=== PATIENT | male | born 1940 | race African-American/Black ===

== ENCOUNTER 2017-08-25 08:45 | Inpatient (IN) ==
[2017-08-25] MEDS ORDERED: ceFAZolin 1,000 MG VIAL ONE (11:58)
[2017-08-25] MEDS ORDERED: SODIUM CHLORIDE 0.9% 100 ML IV ONE (11:59)
[2017-08-25] MEDS ORDERED: VANCOMYCIN 500 MG VIAL ONE (12:08)
[2017-08-25] MEDS ORDERED: HEPARIN 5,000 UNIT/1 ML VIAL ONE (12:08)
[2017-08-25] MEDS ORDERED: TISSUE ADHESIVE 1 EACH APPLICATOR TOP ONE (12:08)
[2017-08-25] MEDS ORDERED: chlorproMAZINE INJ 25 MG in SODIUM CHLORIDE 0.9% 100 ML IV PRN (13:33)
[2017-08-25] MEDS ORDERED: guaiFENesin 200 MG/10 ML UDCUP PO PRN (13:33)
[2017-08-25] MEDS ORDERED: MYLANTA/LIDO VISC 2:1 300 ML BOTTLE SWISH/SPIT PRN (13:33)
[2017-08-25] MEDS ORDERED: ALUMINUM/MAGNES/SIMETH MAX STR 30 ML UDCUP PO PRN (13:33)
[2017-08-25] MEDS ORDERED: chlorproMAZINE 25 MG TABLET PO PRN (13:33)
[2017-08-25] MEDS ORDERED: BENZTROPINE 2 MG/2 ML AMP IV PRN (13:33)
[2017-08-25] MEDS ORDERED: MAGNESIUM HYDROXIDE SUSP 30 ML UDCUP PO PRN (13:33)
[2017-08-25] MEDS ORDERED: ALPRAZolam 0.25 MG TABLET PO PRN (13:33)
[2017-08-25] MEDS ORDERED: TEMAZEPAM 7.5 MG CAPSULE PO PRN (13:33)
[2017-08-25] MEDS ORDERED: ACETAMINOPHEN 325 MG TABLET PO PRN (13:33)
[2017-08-25] MEDS ORDERED: chlorproMAZINE INJ 50 MG in SODIUM CHLORIDE 0.9% 100 ML IV PRN (13:33)
[2017-08-25] MEDS ORDERED: PROMETHAZINE INJ 25 MG in SODIUM CHLORIDE 0.9% 50 ML IV PRN (13:33)
[2017-08-25] MEDS ORDERED: traMADol 50 MG TABLET PO PRN (13:33)
[2017-08-25] MEDS ORDERED: LOPERAMIDE 2 MG CAPSULE PO PRN ×2 (13:33)
[2017-08-25] MEDS ORDERED: diphenhydrAMINE CAP 25 MG CAPSULE PO PRN (13:33)
[2017-08-25] MEDS ORDERED: HYDROmorphone 2 MG/1 ML VIAL IV PRN (13:36)
[2017-08-25] MEDS ORDERED: MIDAZOLAM 2 MG/2 ML VIAL ONE (13:41)
[2017-08-25] MEDS ORDERED: PROPOFOL 200 MG/20 ML VIAL IV ONE (13:41)
[2017-08-25] MEDS ORDERED: fentaNYL 100 MCG/2 ML VIAL ONE (13:41)
[2017-08-25] MEDS ORDERED: MYLANTA/LIDO VISC 2:1 300 ML BOTTLE SWISH/SWAL PRN (14:50)
[2017-08-25 15:07] LABS: Basophils % 0.5 % (0.0-0.8); Eosinophils # 0.1 10*3/uL (0.0-0.87); Eosinophils % 0.9 % (0.00-10.9); Hematocrit 27.6 VOL% (42.0-52.0); Hemoglobin 8.6 GM/DL (14.0-18.0); Immature Granulocytes % 0.4 %; Immature Granulocytes Absolute 0.03 #; Lymphocytes # 1.5 10*3/uL (1.4-4.0); Lymphocytes % 18.7 % (21.2-54.2); Mean Corpuscular HGB Conc 31.2 GM/DL (32-36); Mean Corpuscular Hemoglobin 25 PG (27-34); Mean Corpuscular Volume 78.9 FL (87-102); Mean Platelet Volume 8.5 FL (9.6-12.0); Monocytes # 0.6 10*3/uL (0.11-0.8); Monocytes % 8.2 % (1.7-12.7); Neutrophils # 5.6 10*3/uL (1.4-7.4); Neutrophils % 71.3 % (38.7-73.9); Platelet Count 523 T/CUMM (130-400); White Blood Count 7.9 T/CUMM (4-12)
[2017-08-25 15:30] LABS: Alanine Aminotransferase < 6 U/L (16-61); Albumin 3.3 G/DL (3.4-5.0); Alkaline Phosphatase 481 U/L (45-117); Aspartate Amino Transferase 22 U/L (0-37); Bilirubin,Total < 0.39 MG/DL (0.2-1.0); Blood Urea Nitrogen 24 MG/DL (7-18); Calcium 7.9 MG/DL (8.5-10.1); Glucose 129 MG/DL (74-106); Osmolality,Calculated 282.5 MOS/KG (273-304); Potassium 4.8 MMOL/L (3.5-5.1); Sodium 139 MMOL/L (136-145); Total Protein 7.8 G/DL (6.4-8.3); Uric Acid 6.9 MG/DL (3.5-7.2)
[2017-08-25] MEDS: DEXT 5% NACL 0.45% KCL 20 MEQ 20 MEQ/1,000 ML BAG IV SCH (17:15)
[2017-08-26] MEDS: DEXT 5% NACL 0.45% KCL 20 MEQ 20 MEQ/1,000 ML BAG IV SCH ×2 (04:47→22:17)
[2017-08-26 05:05] LABS: Basophils % 0.6 % (0.0-0.8); Eosinophils # 0.1 10*3/uL (0.0-0.87); Hematocrit 25.8 VOL% (42.0-52.0); Hemoglobin 7.8 GM/DL (14.0-18.0); Immature Granulocytes % 0.3 %; Immature Granulocytes Absolute 0.02 #; Lymphocytes # 1.1 10*3/uL (1.4-4.0); Lymphocytes % 17.6 % (21.2-54.2); Mean Corpuscular HGB Conc 30.2 GM/DL (32-36); Mean Corpuscular Hemoglobin 24 PG (27-34); Mean Corpuscular Volume 80.6 FL (87-102); Mean Platelet Volume 8.4 FL (9.6-12.0); Monocytes # 0.7 10*3/uL (0.11-0.8); Monocytes % 10.3 % (1.7-12.7); Neutrophils # 4.4 10*3/uL (1.4-7.4); Neutrophils % 69.2 % (38.7-73.9); Platelet Count 448 T/CUMM (130-400); Red Cell Distribution Width 17.8 % (9.3-17.3); White Blood Count 6.4 T/CUMM (4-12)
[2017-08-26 05:41] LABS: Alanine Aminotransferase < 6 U/L (16-61); Albumin 2.8 G/DL (3.4-5.0); Alkaline Phosphatase 429 U/L (45-117); Aspartate Amino Transferase 18 U/L (0-37); Blood Urea Nitrogen 20 MG/DL (7-18); Calcium 7.4 MG/DL (8.5-10.1); Glucose 183 MG/DL (74-106); Osmolality,Calculated 282.7 MOS/KG (273-304); Potassium 4.6 MMOL/L (3.5-5.1); Sodium 138 MMOL/L (136-145); Total Protein 7.1 G/DL (6.4-8.3)
[2017-08-26] MEDS ORDERED: SODIUM CHLORIDE 0.9% 1,000 ML IV PRN (09:50)
[2017-08-26 09:56] LABS: Apearance,Urine CLEAR (Clear); Bacteria,Urine Occasional /HPF (Few); Bilirubin,Urine Negative (Negative); Blood, Urine Negative (Negative); Glucose,Urine (UA) 50 mg/dL (Negative); Hyaline Casts,Urine 3 /LPF (0-3); Ketones,Urine Negative (Negative); Mucus,Urine Occasional /LPF (Occasional); Nitrite,Urine Negative (Negative); Protein,Urine Negative; RBC,Urine <1 /HPF (0-4); Squamous Epithelial Cell,Urine Occasional /HPF (0-10); Urine Color Yellow (Yellow); Urine Specific Gravity 1.017 (1.001-1.035); Urine Urobilinogen < 2.0 EU/DL (0.2-1.0); WBC,Urine 3 /HPF (0-6)
[2017-08-26] MEDS ORDERED: DEXAMETHASONE 10 MG/1 ML VIAL IV SCH (10:00)
[2017-08-26] MEDS: DEXAMETHASONE INJ 20 MG in SODIUM CHLORIDE 0.9% 50 ML IV SCH (10:55)
[2017-08-27] MEDS: DEXAMETHASONE INJ 20 MG in SODIUM CHLORIDE 0.9% 50 ML IV SCH ×3 (00:06→23:39)
[2017-08-27] MEDS ORDERED: HEPARIN LOCK FLUSH 500 UNIT/5 ML SYRINGE IV ONE (04:14)
[2017-08-27 05:23] LABS: Basophils % 0.1 % (0.0-0.8); Hematocrit 31.8 VOL% (42.0-52.0); Hemoglobin 9.9 GM/DL (14.0-18.0); Immature Granulocytes % 0.7 %; Immature Granulocytes Absolute 0.06 #; Lymphocytes # 0.8 10*3/uL (1.4-4.0); Lymphocytes % 9.3 % (21.2-54.2); Mean Corpuscular HGB Conc 31.1 GM/DL (32-36); Mean Corpuscular Hemoglobin 26 PG (27-34); Mean Corpuscular Volume 82.4 FL (87-102); Mean Platelet Volume 8.7 FL (9.6-12.0); Monocytes # 0.7 10*3/uL (0.11-0.8); Monocytes % 7.8 % (1.7-12.7); Neutrophils # 7.1 10*3/uL (1.4-7.4); Neutrophils % 82.1 % (38.7-73.9); Platelet Count 356 T/CUMM (130-400); Red Blood Count 3.86 MC/CUMM (3.8-5.5); Red Cell Distribution Width 17.4 % (9.3-17.3); White Blood Count 8.7 T/CUMM (4-12)
[2017-08-27 05:56] LABS: Alanine Aminotransferase < 9 U/L (16-61); Albumin 2.7 G/DL (3.4-5.0); Alkaline Phosphatase 416 U/L (45-117); Aspartate Amino Transferase 36 U/L (0-37); Blood Urea Nitrogen 22 MG/DL (7-18); Calcium 7.1 MG/DL (8.5-10.1); Glucose 228 MG/DL (74-106); Osmolality,Calculated 279.1 MOS/KG (273-304); Potassium 4.8 MMOL/L (3.5-5.1); Sodium 135 MMOL/L (136-145); Total Protein 6.9 G/DL (6.4-8.3)
[2017-08-27] MEDS: DEXT 5% NACL 0.45% KCL 20 MEQ 20 MEQ/1,000 ML BAG IV SCH ×2 (05:58→16:53)
[2017-08-27] MEDS ORDERED: SODIUM CHLORIDE 0.9% IV ONE ×2 (10:00→16:00)
[2017-08-27] MEDS ORDERED: DOCETAXEL IV ONE ×2 (10:00→16:00)
[2017-08-27] MEDS: HYDROmorphone 2 MG/1 ML VIAL IV PRN ×2 (10:23→15:28)
[2017-08-27] MEDS: GRANISETRON 1 MG/1 ML VIAL IV SCH (15:28)
[2017-08-27 17:15] LABS: Apearance,Urine CLEAR (Clear); Bilirubin,Urine Negative (Negative); Blood, Urine Moderate mg/dL (Negative); Glucose,Urine (UA) >=500 mg/dL (Negative); Ketones,Urine Negative (Negative); Mucus,Urine Occasional /LPF (Occasional); Nitrite,Urine Negative (Negative); Protein,Urine Negative; RBC,Urine 10 /HPF (0-4); Squamous Epithelial Cell,Urine Occasional /HPF (0-10); Urine Color Yellow (Yellow); Urine Specific Gravity 1.009 (1.001-1.035); Urine Urobilinogen < 2.0 EU/DL (0.2-1.0); WBC,Urine 1 /HPF (0-6)
[2017-08-28 05:20] LABS: Basophils % 0.1 % (0.0-0.8); Hemoglobin 9.9 GM/DL (14.0-18.0); Immature Granulocytes % 1.1 %; Immature Granulocytes Absolute 0.12 #; Lymphocytes # 0.4 10*3/uL (1.4-4.0); Lymphocytes % 3.8 % (21.2-54.2); Mean Corpuscular HGB Conc 31.9 GM/DL (32-36); Mean Corpuscular Hemoglobin 26 PG (27-34); Mean Corpuscular Volume 81.2 FL (87-102); Mean Platelet Volume 9.5 FL (9.6-12.0); Monocytes # 0.3 10*3/uL (0.11-0.8); Monocytes % 2.4 % (1.7-12.7); Neutrophils # 10.2 10*3/uL (1.4-7.4); Neutrophils % 92.6 % (38.7-73.9); Platelet Count 342 T/CUMM (130-400); Red Blood Count 3.82 MC/CUMM (3.8-5.5); Red Cell Distribution Width 17.6 % (9.3-17.3)
[2017-08-28 05:38] LABS: Alanine Aminotransferase < 6 U/L (16-61); Albumin 2.6 G/DL (3.4-5.0); Alkaline Phosphatase 400 U/L (45-117); Aspartate Amino Transferase 30 U/L (0-37); Bilirubin,Total < 0.39 MG/DL (0.2-1.0); Blood Urea Nitrogen 21 MG/DL (7-18); Calcium 6.9 MG/DL (8.5-10.1); Glucose 336 MG/DL (74-106); Osmolality,Calculated 277.7 MOS/KG (273-304); Potassium 5.1 MMOL/L (3.5-5.1); Sodium 131 MMOL/L (136-145); Total Protein 6.7 G/DL (6.4-8.3)
[2017-08-28 05:50] LABS: Lymphocytes 4 % (20-55); Segmented Neutrophils 95 % (50-85); Total Cells Counted 100
[2017-08-28 05:51] LABS: Giant Platelets Few; Hypochromasia 1+; Ovalocytes Slight; Platelet Estimate Adequate
[2017-08-28] MEDS: DEXT 5% NACL 0.45% KCL 20 MEQ 20 MEQ/1,000 ML BAG IV SCH ×2 (06:20→17:36)
[2017-08-28] MEDS: GRANISETRON 1 MG/1 ML VIAL IV SCH (09:14)
[2017-08-28] MEDS ORDERED: DEXTROSE 50% 25 GM/50 ML VIAL IV PRN ×2 (12:05→12:09)
[2017-08-28] MEDS ORDERED: GLUCAGON 1 MG VIAL IM PRN ×2 (12:05→12:09)
[2017-08-28] MEDS: DEXAMETHASONE INJ 20 MG in SODIUM CHLORIDE 0.9% 50 ML IV SCH ×2 (12:18→23:17)
[2017-08-28] MEDS: INSULIN LISPRO 100 UNIT/ML SUBCUT SCH ×2 (16:57→20:02)
[2017-08-28] MEDS: HYDROmorphone 2 MG/1 ML VIAL IV PRN (19:34)
[2017-08-29] MEDS: DEXT 5% NACL 0.45% KCL 20 MEQ 20 MEQ/1,000 ML BAG IV SCH ×2 (04:02→16:53)
[2017-08-29 04:24] LABS: Basophils % 0.1 % (0.0-0.8); Hematocrit 31.6 VOL% (42.0-52.0); Hemoglobin 9.9 GM/DL (14.0-18.0); Immature Granulocytes % 0.9 %; Immature Granulocytes Absolute 0.09 #; Lymphocytes # 0.3 10*3/uL (1.4-4.0); Lymphocytes % 3.2 % (21.2-54.2); Mean Corpuscular HGB Conc 31.3 GM/DL (32-36); Mean Corpuscular Hemoglobin 26 PG (27-34); Mean Corpuscular Volume 82.3 FL (87-102); Mean Platelet Volume 9.5 FL (9.6-12.0); Monocytes # 0.4 10*3/uL (0.11-0.8); Neutrophils # 9.6 10*3/uL (1.4-7.4); Neutrophils % 91.8 % (38.7-73.9); Platelet Count 294 T/CUMM (130-400); Red Blood Count 3.84 MC/CUMM (3.8-5.5); Red Cell Distribution Width 17.7 % (9.3-17.3); White Blood Count 10.5 T/CUMM (4-12)
[2017-08-29 04:50] LABS: Alanine Aminotransferase < 6 U/L (16-61); Albumin 2.4 G/DL (3.4-5.0); Alkaline Phosphatase 348 U/L (45-117); Aspartate Amino Transferase 27 U/L (0-37); Blood Urea Nitrogen 21 MG/DL (7-18); Calcium 6.6 MG/DL (8.5-10.1); Glucose 203 MG/DL (74-106); Osmolality,Calculated 278.1 MOS/KG (273-304); Potassium 5.7 MMOL/L (3.5-5.1); Sodium 135 MMOL/L (136-145); Total Protein 6.3 G/DL (6.4-8.3)
[2017-08-29 05:15] LABS: Band Neutrophils 3 % (0-10); Lymphocytes 6 % (20-55); Platelet Estimate Normal; Segmented Neutrophils 86 % (50-85); Total Cells Counted 100
[2017-08-29] MEDS: LACTULOSE 20 GM/30 ML UDCUP PO PRN (08:41)
[2017-08-29] MEDS: GRANISETRON 1 MG/1 ML VIAL IV SCH (08:41)
[2017-08-29] MEDS: INSULIN LISPRO 100 UNIT/ML SUBCUT SCH ×4 (08:42→21:12)
[2017-08-29] MEDS: DEXAMETHASONE INJ 20 MG in SODIUM CHLORIDE 0.9% 50 ML IV SCH ×2 (10:57→23:40)
[2017-08-29] MEDS: DEXTROSE 5% NACL 0.45% 1,000 ML IV SCH (11:20)
[2017-08-29] MEDS: metFORMIN 500 MG TABLET PO SCH (17:25)
[2017-08-29] MEDS: ONDANSETRON 4 MG/2 ML VIAL IV PRN (20:56)
[2017-08-30 04:51] LABS: Basophils % 0.1 % (0.0-0.8); Hemoglobin 10.3 GM/DL (14.0-18.0); Immature Granulocytes % 0.7 %; Immature Granulocytes Absolute 0.07 #; Lymphocytes # 0.1 10*3/uL (1.4-4.0); Lymphocytes % 1.5 % (21.2-54.2); Mean Corpuscular HGB Conc 32.2 GM/DL (32-36); Mean Corpuscular Hemoglobin 26 PG (27-34); Mean Corpuscular Volume 80.2 FL (87-102); Mean Platelet Volume 9.6 FL (9.6-12.0); Monocytes # 0.2 10*3/uL (0.11-0.8); Monocytes % 1.8 % (1.7-12.7); Neutrophils % 95.9 % (38.7-73.9); Platelet Count 239 T/CUMM (130-400); Red Blood Count 3.99 MC/CUMM (3.8-5.5); Red Cell Distribution Width 17.9 % (9.3-17.3); White Blood Count 9.3 T/CUMM (4-12)
[2017-08-30 05:20] LABS: Elliptocytes Few; Hypochromasia 1+; Lymphocytes 1 % (20-55); Microcytosis 1+; Segmented Neutrophils 96 % (50-85); Tear Drop Cells Slight; Total Cells Counted 100
[2017-08-30 05:21] LABS: Platelet Estimate Normal
[2017-08-30 06:25] LABS: Albumin 2.4 G/DL (3.4-5.0); Bilirubin,Total 0.6 MG/DL (0.2-1.0); Calcium 6.5 MG/DL (8.5-10.1); Osmolality,Calculated 281.7 MOS/KG (273-304)
[2017-08-30] MEDS: INSULIN LISPRO 100 UNIT/ML SUBCUT SCH ×4 (09:07→20:29)
[2017-08-30] MEDS: GRANISETRON 1 MG/1 ML VIAL IV SCH (09:08)
[2017-08-30] MEDS: metFORMIN 500 MG TABLET PO SCH ×2 (09:08→16:57)
[2017-08-30] MEDS: DEXAMETHASONE INJ 20 MG in SODIUM CHLORIDE 0.9% 50 ML IV SCH ×2 (12:00→23:17)
[2017-08-31] MEDS ORDERED: HEPARIN LOCK FLUSH 500 UNIT/5 ML SYRINGE IV ONE (00:21)
[2017-08-31 05:02] LABS: Basophils % 0.1 % (0.0-0.8); Hematocrit 31.3 VOL% (42.0-52.0); Immature Granulocytes % 1.2 %; Immature Granulocytes Absolute 0.08 #; Lymphocytes # 0.1 10*3/uL (1.4-4.0); Lymphocytes % 2.1 % (21.2-54.2); Mean Corpuscular HGB Conc 31.9 GM/DL (32-36); Mean Corpuscular Hemoglobin 26 PG (27-34); Mean Corpuscular Volume 81.3 FL (87-102); Mean Platelet Volume 10.2 FL (9.6-12.0); Monocytes # 0.1 10*3/uL (0.11-0.8); Monocytes % 0.9 % (1.7-12.7); Neutrophils # 6.4 10*3/uL (1.4-7.4); Neutrophils % 95.7 % (38.7-73.9); Platelet Count 210 T/CUMM (130-400); Red Blood Count 3.85 MC/CUMM (3.8-5.5); Red Cell Distribution Width 18.2 % (9.3-17.3); White Blood Count 6.7 T/CUMM (4-12)
[2017-08-31 05:22] LABS: Giant Platelets Few; Lymphocytes 2 % (20-55); Ovalocytes Slight; Platelet Estimate Adequate; Segmented Neutrophils 98 % (50-85); Total Cells Counted 100
[2017-08-31 05:23] LABS: Hypochromasia 1+; Microcytosis Slight
[2017-08-31 05:33] LABS: Albumin 2.2 G/DL (3.4-5.0); Bilirubin,Total 0.4 MG/DL (0.2-1.0); Calcium 6.2 MG/DL (8.5-10.1); Potassium 5.1 MMOL/L (3.5-5.1); Total Protein 5.5 G/DL (6.4-8.3)
[2017-08-31] MEDS: GRANISETRON 1 MG/1 ML VIAL IV SCH (09:08)
[2017-08-31] MEDS: INSULIN LISPRO 100 UNIT/ML SUBCUT SCH ×4 (09:08→20:31)
[2017-08-31] MEDS: metFORMIN 500 MG TABLET PO SCH ×2 (09:10→16:51)
[2017-08-31] MEDS: DEXAMETHASONE INJ 20 MG in SODIUM CHLORIDE 0.9% 50 ML IV SCH (12:28)
[2017-08-31] MEDS: DEXTROSE 5% NACL 0.45% 1,000 ML IV SCH (20:31)
[2017-09-01] MEDS: DEXAMETHASONE INJ 20 MG in SODIUM CHLORIDE 0.9% 50 ML IV SCH ×2 (00:02→10:46)
[2017-09-01] MEDS ORDERED: DOCETAXEL IV ONE (07:43)
[2017-09-01] MEDS ORDERED: SODIUM CHLORIDE 0.9% IV ONE (07:43)
[2017-09-01] MEDS ORDERED: DEXAMETHASONE 10 MG/1 ML VIAL IV ONE (07:44)
[2017-09-01] MEDS ORDERED: GRANISETRON 1 MG/1 ML VIAL IV SCH (08:00)
[2017-09-01] MEDS: INSULIN LISPRO 100 UNIT/ML SUBCUT SCH ×4 (08:50→22:06)
[2017-09-01] MEDS: metFORMIN 500 MG TABLET PO SCH ×2 (08:50→17:23)
[2017-09-01] MEDS: GRANISETRON 1 MG/1 ML VIAL IV SCH (10:33)
[2017-09-02] MEDS: DEXTROSE 5% NACL 0.45% 1,000 ML IV SCH (00:22)
[2017-09-02] MEDS: DEXAMETHASONE INJ 20 MG in SODIUM CHLORIDE 0.9% 50 ML IV SCH ×3 (00:24→23:48)
[2017-09-02] MEDS: INSULIN LISPRO 100 UNIT/ML SUBCUT SCH ×4 (09:34→20:19)
[2017-09-02] MEDS: metFORMIN 500 MG TABLET PO SCH ×2 (09:35→17:48)
[2017-09-02] MEDS: GRANISETRON 1 MG/1 ML VIAL IV SCH (09:35)
[2017-09-03] MEDS: LACTULOSE 20 GM/30 ML UDCUP PO PRN (05:45)
[2017-09-03] MEDS: DEXTROSE 5% NACL 0.45% 1,000 ML IV SCH ×2 (06:06→22:31)
[2017-09-03] MEDS: GRANISETRON 1 MG/1 ML VIAL IV SCH (09:50)
[2017-09-03] MEDS: INSULIN LISPRO 100 UNIT/ML SUBCUT SCH ×4 (09:54→21:53)
[2017-09-03] MEDS: metFORMIN 500 MG TABLET PO SCH ×3 (09:55→17:14)
[2017-09-03] MEDS: DEXAMETHASONE INJ 20 MG in SODIUM CHLORIDE 0.9% 50 ML IV SCH ×2 (11:13→22:35)
[2017-09-04] MEDS: metFORMIN 500 MG TABLET PO SCH ×4 (08:18→16:56)
[2017-09-04] MEDS: INSULIN LISPRO 100 UNIT/ML SUBCUT SCH ×4 (08:24→20:28)
[2017-09-04] MEDS: DEXTROSE 5% NACL 0.45% 1,000 ML IV SCH (08:26)
[2017-09-04] MEDS: GRANISETRON 1 MG/1 ML VIAL IV SCH (08:27)
[2017-09-04] MEDS: DEXAMETHASONE INJ 20 MG in SODIUM CHLORIDE 0.9% 50 ML IV SCH ×2 (11:26→23:05)
[2017-09-04] MEDS ORDERED: HEPARIN LOCK FLUSH 500 UNIT/5 ML SYRINGE IV ONE (16:48)
[2017-09-05] MEDS: metFORMIN 500 MG TABLET PO SCH ×4 (08:11→16:39)
[2017-09-05] MEDS: INSULIN LISPRO 100 UNIT/ML SUBCUT SCH ×4 (09:12→21:29)
[2017-09-05] MEDS: GRANISETRON 1 MG/1 ML VIAL IV SCH (09:13)
[2017-09-05] MEDS: DEXAMETHASONE INJ 20 MG in SODIUM CHLORIDE 0.9% 50 ML IV SCH ×2 (11:33→22:49)
[2017-09-06 08:13] LABS: Basophils % 0.8 % (0.0-0.8); Hematocrit 29.8 VOL% (42.0-52.0); Hemoglobin 9.8 GM/DL (14.0-18.0); Immature Granulocytes % 12.8 %; Immature Granulocytes Absolute 0.17 #; Lymphocytes # 0.1 10*3/uL (1.4-4.0); Lymphocytes % 6.8 % (21.2-54.2); Mean Corpuscular HGB Conc 32.9 GM/DL (32-36); Mean Corpuscular Hemoglobin 26 PG (27-34); Mean Platelet Volume 10.5 FL (9.6-12.0); Monocytes # 0.1 10*3/uL (0.11-0.8); Monocytes % 3.8 % (1.7-12.7); Neutrophils % 75.8 % (38.7-73.9); Platelet Count 117 T/CUMM (130-400); Red Blood Count 3.77 MC/CUMM (3.8-5.5); Red Cell Distribution Width 18.4 % (9.3-17.3); White Blood Count 1.3 T/CUMM (4-12)
[2017-09-06 08:33] LABS: Albumin 2.3 G/DL (3.4-5.0); Bilirubin,Total 0.7 MG/DL (0.2-1.0); Potassium 4.9 MMOL/L (3.5-5.1); Total Protein 5.3 G/DL (6.4-8.3)
[2017-09-06] MEDS: INSULIN LISPRO 100 UNIT/ML SUBCUT SCH ×4 (08:35→21:10)
[2017-09-06 08:38] LABS: Lymphocytes 4 % (20-55); Nucleated Red Blood Cells 2 (0-5); Segmented Neutrophils 95 % (50-85); Total Cells Counted 100
[2017-09-06 08:39] LABS: Calcium 5.8 MG/DL (8.5-10.1); Platelet Estimate Decreased; Target Cells Slight
[2017-09-06] MEDS: metFORMIN 500 MG TABLET PO SCH ×4 (09:03→17:47)
[2017-09-06] MEDS: GRANISETRON 1 MG/1 ML VIAL IV SCH (09:03)
[2017-09-06] MEDS: DEXAMETHASONE INJ 20 MG in SODIUM CHLORIDE 0.9% 50 ML IV SCH (12:08)
[2017-09-06] MEDS: CALCIUM CARBONATE CHEW 500 MG TABLET PO SCH ×2 (12:09→21:09)
[2017-09-07] MEDS: DEXAMETHASONE INJ 20 MG in SODIUM CHLORIDE 0.9% 50 ML IV SCH ×3 (00:01→22:30)
[2017-09-07 06:03] LABS: Hematocrit 30.8 VOL% (42.0-52.0); Hemoglobin 10.1 GM/DL (14.0-18.0); Immature Granulocytes % 2.1 %; Immature Granulocytes Absolute 0.02 #; Lymphocytes # 0.1 10*3/uL (1.4-4.0); Lymphocytes % 8.2 % (21.2-54.2); Mean Corpuscular HGB Conc 32.8 GM/DL (32-36); Mean Corpuscular Hemoglobin 26 PG (27-34); Mean Corpuscular Volume 78.4 FL (87-102); Mean Platelet Volume 10.9 FL (9.6-12.0); Monocytes # 0.1 10*3/uL (0.11-0.8); Monocytes % 10.3 % (1.7-12.7); Neutrophils # 0.8 10*3/uL (1.4-7.4); Neutrophils % 78.4 % (38.7-73.9); Platelet Count 126 T/CUMM (130-400); Red Blood Count 3.93 MC/CUMM (3.8-5.5); Red Cell Distribution Width 18.2 % (9.3-17.3)
[2017-09-07 06:36] LABS: Band Neutrophils 3 % (0-10); Lymphocytes 11 % (20-55); Nucleated Red Blood Cells 2 (0-5); Segmented Neutrophils 81 % (50-85); Total Cells Counted 100
[2017-09-07 06:37] LABS: Burr Cells Slight; Giant Platelets Few; Hypochromasia 1+; Microcytosis Slight; Ovalocytes Slight; Platelet Estimate Decreased
[2017-09-07 06:47] LABS: Albumin 2.3 G/DL (3.4-5.0); Bilirubin,Total 1.7 MG/DL (0.2-1.0); Calcium 6.1 MG/DL (8.5-10.1); Osmolality,Calculated 274.1 MOS/KG (273-304); Potassium 4.8 MMOL/L (3.5-5.1); Total Protein 5.1 G/DL (6.4-8.3)
[2017-09-07] MEDS: FILGRASTIM-SNDZ 300 MCG/0.5 ML SYRINGE SUBCUT SCH (09:32)
[2017-09-07] MEDS: INSULIN LISPRO 100 UNIT/ML SUBCUT SCH ×4 (09:32→20:31)
[2017-09-07] MEDS: metFORMIN 500 MG TABLET PO SCH ×4 (09:32→17:30)
[2017-09-07] MEDS: CALCIUM CARBONATE CHEW 500 MG TABLET PO SCH ×2 (09:32→20:31)
[2017-09-07] MEDS: GRANISETRON 1 MG/1 ML VIAL IV SCH (09:33)
[2017-09-08 04:57] LABS: Hematocrit 31.1 VOL% (42.0-52.0); Hemoglobin 9.9 GM/DL (14.0-18.0); Immature Granulocytes % 7.9 %; Immature Granulocytes Absolute 0.16 #; Lymphocytes # 0.1 10*3/uL (1.4-4.0); Lymphocytes % 3.9 % (21.2-54.2); Mean Corpuscular HGB Conc 31.8 GM/DL (32-36); Mean Corpuscular Hemoglobin 26 PG (27-34); Mean Corpuscular Volume 80.6 FL (87-102); Mean Platelet Volume 10.9 FL (9.6-12.0); Monocytes # 0.2 10*3/uL (0.11-0.8); Monocytes % 10.3 % (1.7-12.7); Neutrophils # 1.6 10*3/uL (1.4-7.4); Neutrophils % 76.9 % (38.7-73.9); Platelet Count 116 T/CUMM (130-400); Red Blood Count 3.86 MC/CUMM (3.8-5.5); Red Cell Distribution Width 18.4 % (9.3-17.3)
[2017-09-08 05:40] LABS: Band Neutrophils 6 % (0-10); Lymphocytes 6 % (20-55); Metamyelocytes 5 %; Segmented Neutrophils 79 % (50-85); Total Cells Counted 100
[2017-09-08 05:41] LABS: Acanthocytes Few; Hypochromasia 1+; Microcytosis 1+; Ovalocytes Slight
[2017-09-08 05:42] LABS: Anisocytosis 1+; Platelet Estimate Decreased
[2017-09-08] MEDS: metFORMIN 500 MG TABLET PO SCH ×4 (09:03→17:22)
[2017-09-08] MEDS: CALCIUM CARBONATE CHEW 500 MG TABLET PO SCH ×2 (09:03→20:53)
[2017-09-08] MEDS: GRANISETRON 1 MG/1 ML VIAL IV SCH (09:04)
[2017-09-08] MEDS: INSULIN LISPRO 100 UNIT/ML SUBCUT SCH ×4 (09:07→20:53)
[2017-09-08] MEDS: DEXAMETHASONE INJ 20 MG in SODIUM CHLORIDE 0.9% 50 ML IV SCH ×2 (11:27→22:34)
[2017-09-08] MEDS: FILGRASTIM-SNDZ 300 MCG/0.5 ML SYRINGE SUBCUT SCH (12:22)
[2017-09-09 08:15] LABS: Basophils % 0.5 % (0.0-0.8); Hematocrit 29.8 VOL% (42.0-52.0); Hemoglobin 9.5 GM/DL (14.0-18.0); Immature Granulocytes % 1.7 %; Immature Granulocytes Absolute 0.07 #; Lymphocytes # 0.1 10*3/uL (1.4-4.0); Lymphocytes % 2.9 % (21.2-54.2); Mean Corpuscular HGB Conc 31.9 GM/DL (32-36); Mean Corpuscular Hemoglobin 26 PG (27-34); Mean Corpuscular Volume 80.5 FL (87-102); Monocytes # 0.5 10*3/uL (0.11-0.8); Monocytes % 11.9 % (1.7-12.7); NRBC # 0.06 10*3/uL; Neutrophils # 3.5 10*3/uL (1.4-7.4); Platelet Count 102 T/CUMM (130-400); Red Cell Distribution Width 18.7 % (9.3-17.3); White Blood Count 4.2 T/CUMM (4-12)
[2017-09-09] MEDS: INSULIN LISPRO 100 UNIT/ML SUBCUT SCH ×4 (08:46→20:47)
[2017-09-09] MEDS: metFORMIN 500 MG TABLET PO SCH ×4 (08:47→17:55)
[2017-09-09 08:53] LABS: Band Neutrophils 6 % (0-10); Lymphocytes 1 % (20-55); Segmented Neutrophils 82 % (50-85); Total Cells Counted 100
[2017-09-09 08:54] LABS: Hypochromasia 1+; Microcytosis 1+; Ovalocytes Slight; Polychromasia Slight
[2017-09-09 08:55] LABS: Acanthocytes Few; Platelet Estimate Decreased
[2017-09-09] MEDS ORDERED: HEPARIN LOCK FLUSH 500 UNIT/5 ML SYRINGE IV ONE (09:54)
[2017-09-09] MEDS: CALCIUM CARBONATE CHEW 500 MG TABLET PO SCH ×2 (09:57→20:47)
[2017-09-09] MEDS: GRANISETRON 1 MG/1 ML VIAL IV SCH (09:58)
[2017-09-09] MEDS: DEXAMETHASONE INJ 20 MG in SODIUM CHLORIDE 0.9% 50 ML IV SCH (13:45)
[2017-09-09] MEDS: FILGRASTIM-SNDZ 300 MCG/0.5 ML SYRINGE SUBCUT SCH (13:46)
[2017-09-10] MEDS: DEXAMETHASONE INJ 20 MG in SODIUM CHLORIDE 0.9% 50 ML IV SCH ×3 (00:03→22:30)
[2017-09-10 05:21] LABS: Basophils # 0.1 10*3/uL (0.0-0.2); Basophils % 0.8 % (0.0-0.8); Hematocrit 29.9 VOL% (42.0-52.0); Hemoglobin 9.8 GM/DL (14.0-18.0); Immature Granulocytes % 10.2 %; Lymphocytes # 0.1 10*3/uL (1.4-4.0); Lymphocytes % 1.2 % (21.2-54.2); Mean Corpuscular HGB Conc 32.8 GM/DL (32-36); Mean Corpuscular Hemoglobin 26 PG (27-34); Mean Corpuscular Volume 79.7 FL (87-102); Mean Platelet Volume 9.5 FL (9.6-12.0); Monocytes % 12.2 % (1.7-12.7); NRBC # 0.07 10*3/uL; Neutrophils # 5.9 10*3/uL (1.4-7.4); Neutrophils % 75.6 % (38.7-73.9); Platelet Count 96 T/CUMM (130-400); Red Blood Count 3.75 MC/CUMM (3.8-5.5); Red Cell Distribution Width 19.5 % (9.3-17.3); White Blood Count 7.8 T/CUMM (4-12)
[2017-09-10 05:49] LABS: Band Neutrophils 6 % (0-10); Hypochromasia 1+; Lymphocytes 1 % (20-55); Nucleated Red Blood Cells 1 (0-5); Ovalocytes Slight; Platelet Estimate Decreased; Segmented Neutrophils 84 % (50-85); Total Cells Counted 100
[2017-09-10 05:50] LABS: Giant Platelets Few; Microcytosis Slight
[2017-09-10 05:51] LABS: Albumin 2.3 G/DL (3.4-5.0); Bilirubin,Total 1.1 MG/DL (0.2-1.0); Calcium 6.9 MG/DL (8.5-10.1); Osmolality,Calculated 287.5 MOS/KG (273-304); Total Protein 4.9 G/DL (6.4-8.3)
[2017-09-10] MEDS: CALCIUM CARBONATE CHEW 500 MG TABLET PO SCH ×2 (08:51→20:49)
[2017-09-10] MEDS: INSULIN LISPRO 100 UNIT/ML SUBCUT SCH ×4 (08:51→20:48)
[2017-09-10] MEDS: metFORMIN 500 MG TABLET PO SCH ×4 (08:51→18:01)
[2017-09-10] MEDS: GRANISETRON 1 MG/1 ML VIAL IV SCH (08:51)
[2017-09-11] MEDS: ONDANSETRON 4 MG/2 ML VIAL IV PRN (03:19)
[2017-09-11 05:08] LABS: Basophils # 0.1 10*3/uL (0.0-0.2); Basophils % 0.7 % (0.0-0.8); Hemoglobin 9.9 GM/DL (14.0-18.0); Immature Granulocytes Absolute 0.59 #; Lymphocytes # 0.1 10*3/uL (1.4-4.0); Lymphocytes % 1.1 % (21.2-54.2); Mean Corpuscular HGB Conc 31.9 GM/DL (32-36); Mean Corpuscular Hemoglobin 26 PG (27-34); Mean Corpuscular Volume 79.9 FL (87-102); Mean Platelet Volume 11.1 FL (9.6-12.0); Monocytes # 0.9 10*3/uL (0.11-0.8); Monocytes % 8.9 % (1.7-12.7); NRBC # 0.05 10*3/uL; Neutrophils # 8.2 10*3/uL (1.4-7.4); Neutrophils % 83.3 % (38.7-73.9); Platelet Count 95 T/CUMM (130-400); Red Blood Count 3.88 MC/CUMM (3.8-5.5); Red Cell Distribution Width 19.9 % (9.3-17.3); White Blood Count 9.9 T/CUMM (4-12)
[2017-09-11 05:37] LABS: Albumin 2.4 G/DL (3.4-5.0); Calcium 7.3 MG/DL (8.5-10.1); Osmolality,Calculated 284.7 MOS/KG (273-304)
[2017-09-11 06:50] LABS: Band Neutrophils 9 % (0-10); Lymphocytes 1 % (20-55); Myelocytes 1 %; Segmented Neutrophils 88 % (50-85); Total Cells Counted 100
[2017-09-11 06:51] LABS: Anisocytosis 1+; Schistocytes 1+
[2017-09-11 06:52] LABS: Target Cells Few; Tear Drop Cells Few
[2017-09-11 06:53] LABS: Acanthocytes 1+; Platelet Estimate Decreased
[2017-09-11] MEDS: CALCIUM CARBONATE CHEW 500 MG TABLET PO SCH ×2 (09:16→20:50)
[2017-09-11] MEDS: INSULIN LISPRO 100 UNIT/ML SUBCUT SCH ×4 (09:17→20:50)
[2017-09-11] MEDS: metFORMIN 500 MG TABLET PO SCH ×3 (09:17→17:21)
[2017-09-11] MEDS: GRANISETRON 1 MG/1 ML VIAL IV SCH (09:17)
[2017-09-11] MEDS: DEXAMETHASONE INJ 20 MG in SODIUM CHLORIDE 0.9% 50 ML IV SCH ×2 (11:38→23:52)
[2017-09-12 05:06] LABS: Basophils % 0.2 % (0.0-0.8); Hematocrit 29.8 VOL% (42.0-52.0); Hemoglobin 9.8 GM/DL (14.0-18.0); Immature Granulocytes % 1.5 %; Immature Granulocytes Absolute 0.13 #; Lymphocytes # 0.1 10*3/uL (1.4-4.0); Lymphocytes % 1.5 % (21.2-54.2); Mean Corpuscular HGB Conc 32.9 GM/DL (32-36); Mean Corpuscular Hemoglobin 27 PG (27-34); Mean Corpuscular Volume 80.5 FL (87-102); Mean Platelet Volume 9.8 FL (9.6-12.0); Monocytes # 0.6 10*3/uL (0.11-0.8); Monocytes % 6.9 % (1.7-12.7); NRBC # 0.06 10*3/uL; Neutrophils # 7.8 10*3/uL (1.4-7.4); Neutrophils % 89.9 % (38.7-73.9); Platelet Count 79 T/CUMM (130-400); Red Cell Distribution Width 20.3 % (9.3-17.3); White Blood Count 8.7 T/CUMM (4-12)
[2017-09-12 05:36] LABS: Band Neutrophils 5 % (0-10); Lymphocytes 5 % (20-55); Microcytosis 1+; Platelet Estimate Decreased; Segmented Neutrophils 90 % (50-85); Total Cells Counted 100
[2017-09-12 05:46] LABS: Albumin 2.3 G/DL (3.4-5.0); Bilirubin,Total 1.3 MG/DL (0.2-1.0); Calcium 7.4 MG/DL (8.5-10.1); Osmolality,Calculated 284.5 MOS/KG (273-304); Potassium 4.9 MMOL/L (3.5-5.1)
[2017-09-12] MEDS: metFORMIN 500 MG TABLET PO SCH ×2 (09:15→16:31)
[2017-09-12] MEDS: CALCIUM CARBONATE CHEW 500 MG TABLET PO SCH ×2 (09:15→20:28)
[2017-09-12] MEDS: INSULIN LISPRO 100 UNIT/ML SUBCUT SCH ×4 (09:16→20:30)
[2017-09-12] MEDS: GRANISETRON 1 MG/1 ML VIAL IV SCH (09:16)
[2017-09-12] MEDS: DEXAMETHASONE INJ 20 MG in SODIUM CHLORIDE 0.9% 50 ML IV SCH ×2 (11:48→22:26)
[2017-09-12] MEDS: PSYLLIUM POWDER 3.7 GM/PACK PO SCH (20:29)
[2017-09-13 05:16] LABS: Basophils % 0.1 % (0.0-0.8); Hemoglobin 9.4 GM/DL (14.0-18.0); Immature Granulocytes % 1.6 %; Immature Granulocytes Absolute 0.12 #; Lymphocytes # 0.1 10*3/uL (1.4-4.0); Lymphocytes % 0.8 % (21.2-54.2); Mean Corpuscular HGB Conc 31.3 GM/DL (32-36); Mean Corpuscular Hemoglobin 26 PG (27-34); Mean Corpuscular Volume 83.3 FL (87-102); Mean Platelet Volume 9.7 FL (9.6-12.0); Monocytes # 0.4 10*3/uL (0.11-0.8); Monocytes % 5.1 % (1.7-12.7); NRBC # 0.02 10*3/uL; Neutrophils # 7.1 10*3/uL (1.4-7.4); Neutrophils % 92.4 % (38.7-73.9); Platelet Count 72 T/CUMM (130-400); Red Cell Distribution Width 20.6 % (9.3-17.3); White Blood Count 7.7 T/CUMM (4-12)
[2017-09-13 05:37] LABS: Acanthocytes Few; Anisocytosis 1+; Band Neutrophils 5 % (0-10); Hypochromasia 1+; Lymphocytes 2 % (20-55); Metamyelocytes 2 %; Microcytosis 1+; Myelocytes 1 %; Segmented Neutrophils 83 % (50-85); Total Cells Counted 100
[2017-09-13 05:38] LABS: Ovalocytes Slight; Platelet Estimate Decreased; Tear Drop Cells Slight
[2017-09-13 05:56] LABS: Albumin 2.4 G/DL (3.4-5.0); Bilirubin,Total 0.5 MG/DL (0.2-1.0); Calcium 7.7 MG/DL (8.5-10.1); Osmolality,Calculated 288.7 MOS/KG (273-304); Potassium 4.9 MMOL/L (3.5-5.1); Total Protein 5.1 G/DL (6.4-8.3)
[2017-09-13] MEDS: INSULIN LISPRO 100 UNIT/ML SUBCUT SCH ×2 (09:06→11:43)
[2017-09-13] MEDS: CALCIUM CARBONATE CHEW 500 MG TABLET PO SCH (09:06)
[2017-09-13] MEDS: metFORMIN 500 MG TABLET PO SCH (09:06)
[2017-09-13] MEDS: GRANISETRON 1 MG/1 ML VIAL IV SCH (09:07)
[2017-09-13] MEDS: PSYLLIUM POWDER 3.7 GM/PACK PO SCH (09:07)
[2017-09-13] MEDS ORDERED: DEXAMETHASONE INJ 20 MG in SODIUM CHLORIDE 0.9% 50 ML IV SCH (11:30)
[2017-09-13] MEDS ORDERED: HEPARIN LOCK FLUSH 500 UNIT/5 ML SYRINGE IV ONE (11:54)
[2017-09-13 12:54] VITALS: BP 122/67
== END 2017-09-13 13:55 | disposition swing bed (61) | DRG 542 ==
LOC: N.ED 08:45 → N.4E 12:08 → N.SDS 12:08 → N.4E 12:10 → N.SDSINP 12:55 → N.4E 14:10
PROVIDERS: ADMIT Specialist; ATTEND Specialist

== ENCOUNTER 2017-09-24 09:08 | Inpatient (IN) ==
[2017-09-24] MEDS ORDERED: ROCURONIUM 100 MG/10 ML VIAL IV STA (09:11)
[2017-09-24] MEDS ORDERED: ETOMIDATE 20 MG/10 ML VIAL IV STA (09:11)
[2017-09-24] MEDS ORDERED: NOREPINEPHRINE 4 MG/4 ML VIAL IV ONE (09:14)
[2017-09-24] MEDS ORDERED: SODIUM CHLORIDE 0.9% 1,000 ML IV STA (09:15)
[2017-09-24] MEDS: NOREPINEPHRINE 16 MG in SODIUM CHLORIDE 0.9% 234 ML IV PRN ×2 (09:15→16:55)
[2017-09-24] MEDS ORDERED: ETOMIDATE 20 MG/10 ML VIAL IV ONE (10:06)
[2017-09-24] MEDS ORDERED: ROCURONIUM 100 MG/10 ML VIAL IV ONE (10:07)
[2017-09-24] MEDS ORDERED: ONDANSETRON 4 MG/2 ML VIAL IV PRN (10:22)
[2017-09-24] MEDS ORDERED: ALBUTEROL 2.5 MG/3 ML NEB RESP TX PRN (10:22)
[2017-09-24] MEDS ORDERED: PANTOPRAZOLE 40 MG VIAL IV SCH (10:30)
[2017-09-24] MEDS ORDERED: SODIUM CHLORIDE 0.9% 1,000 ML IV SCH (10:30)
[2017-09-24 10:41] LABS: Basophils % 0.9 % (0.0-0.8); Hematocrit 25.9 VOL% (42.0-52.0); Hemoglobin 7.8 GM/DL (14.0-18.0); Immature Granulocytes % 0.5 %; Immature Granulocytes Absolute 0.01 #; Lymphocytes # 0.4 10*3/uL (1.4-4.0); Lymphocytes % 16.9 % (21.2-54.2); Mean Corpuscular HGB Conc 30.1 GM/DL (32-36); Mean Corpuscular Hemoglobin 26 PG (27-34); Monocytes # 0.1 10*3/uL (0.11-0.8); Monocytes % 2.8 % (1.7-12.7); NRBC # 0.03 10*3/uL; Neutrophils # 1.7 10*3/uL (1.4-7.4); Neutrophils % 78.9 % (38.7-73.9); Red Blood Count 3.01 MC/CUMM (3.8-5.5); Red Cell Distribution Width 23.4 % (9.3-17.3); White Blood Count 2.1 T/CUMM (4-12)
[2017-09-24 10:43] LABS: Platelet Count 7 T/CUMM (130-400)
[2017-09-24 10:49] LABS: INR 1.5; PT Patient Result 15.9 SECS
[2017-09-24] MEDS ORDERED: SODIUM CHLORIDE 0.9% 1,000 ML IV ONE ×3 (10:55→17:34)
[2017-09-24 10:59] LABS: Alanine Aminotransferase 46 U/L (16-61); Alkaline Phosphatase 186 U/L (45-117); Aspartate Amino Transferase 185 U/L (0-37); Blood Urea Nitrogen 91 MG/DL (7-18); Calcium 5.9 MG/DL (8.5-10.1); Glucose 206 MG/DL (74-106); Osmolality,Calculated 303.1 MOS/KG (273-304); Potassium 5.3 MMOL/L (3.5-5.1); Sodium 135 MMOL/L (136-145); Total Protein 4.7 G/DL (6.4-8.3); Troponin I Only < 0.015 NG/ML (0.00-0.045)
[2017-09-24 11:06] LABS: Band Neutrophils 9 % (0-10); Lymphocytes 19 % (20-55); Nucleated Red Blood Cells 2 (0-5); Segmented Neutrophils 67 % (50-85); Total Cells Counted 100
[2017-09-24 11:07] LABS: Burr Cells Slight; Giant Platelets Few; Hypochromasia 1+; Ovalocytes Slight; Platelet Estimate Decreased
[2017-09-24 11:08] LABS: Microcytosis 1+
[2017-09-24 11:12] LABS: Lactic Acid 18.4 MMOL/L (0.4-2.0)
[2017-09-24 11:26] LABS: ABG Base Excess -25.6 MMOL/L (-2.5-2.5); ABG HCO3 6.1 MMOL/L (20-26); ABG Oxygen Saturation 98.7 % (95-100); ABG PCO2 36.8 MM HG (35-48); ABG TCO2 6.7 MMOL/L (23-27)
[2017-09-24 11:27] LABS: ABG PH 6.842 (7.35-7.45)
[2017-09-24] MEDS ORDERED: SODIUM CHLORIDE 0.9% 1,000 ML IV PRN (11:43)
[2017-09-24] MEDS ORDERED: LEVOFLOXACIN INJ 750 MG in PREMIX 1 EACH IV SCH (12:00)
[2017-09-24 12:19] LABS: ABG Base Excess -24.6 MMOL/L (-2.5-2.5); ABG HCO3 6.2 MMOL/L (20-26); ABG PCO2 30.8 MM HG (35-48); ABG PO2 479.1 MM HG (80-95); ABG TCO2 7.1 MMOL/L (23-27); Allen Test Positive; Pt O2 Delivery Device Ventilator
[2017-09-24 12:22] LABS: ABG PH 6.919 (7.35-7.45)
[2017-09-24] MEDS ORDERED: VASOPRESSIN 100 UNITS in SODIUM CHLORIDE 0.9% 95 ML IV SCH (12:30)
[2017-09-24] MEDS ORDERED: SODIUM BICARBONATE 50 MEQ/50 ML SYRINGE IV ONE ×2 (12:38→13:00)
[2017-09-24] MEDS ORDERED: SODIUM BICARB INJ 100 MEQ in DEXTROSE 5% NACL 0.45% 1,000 ML IV SCH (13:00)
[2017-09-24] MEDS ORDERED: SODIUM BICARB INJ 50 MEQ in DEXTROSE 5% NACL 0.45% 1,000 ML IV SCH (13:00)
[2017-09-24] MEDS ORDERED: methylPREDNISolone SOD SUC 125 MG/2 ML VIAL IV ONE (13:11)
[2017-09-24] MEDS: PHENYLEPHRINE DRIP 40 MG/250 ML PREMIX IV PRN ×2 (13:18→16:55)
[2017-09-24] MEDS ORDERED: PIPERACILLIN/TAZOBACTAM 3.375 MG in SODIUM CHLORIDE 0.9% 100 ML IV SCH (13:30)
[2017-09-24 17:23] VITALS: BP 63/45
[2017-09-24] MEDS ORDERED: HYDROCORTISONE 100 MG VIAL IV SCH (17:30)
[2017-09-24 17:36] LABS: ABG Base Excess -27.4 MMOL/L (-2.5-2.5); ABG HCO3 4.7 MMOL/L (20-26); ABG PCO2 25.1 MM HG (35-48); ABG TCO2 4.4 MMOL/L (23-27); Allen Test Positive; Pt O2 Delivery Device Ventilator
[2017-09-24] MEDS ORDERED: VANCOMYCIN INJ 1,000 MG in SODIUM CHLORIDE 0.9% 250 ML IV SCH (18:00)
[2017-09-24] MEDS ORDERED: DEXAMETHASONE INJ 20 MG in SODIUM CHLORIDE 0.9% 50 ML IV SCH (18:00)
[2017-09-24] MEDS ORDERED: SODIUM BICARBONATE 50 MEQ/50 ML VIAL IV ONE ×2 (18:22)
[2017-09-24] MEDS ORDERED: MAGNESIUM SULF RIDER 4 GM in PREMIX 1 EACH IV PRN (18:34)
[2017-09-24] MEDS ORDERED: MAGNESIUM SULF RIDER 2 GM in PREMIX 1 EACH IV PRN (18:34)
== END 2017-09-24 18:04 | disposition expired | DRG 208 ==
LOC: EDSEX → EDBD → EDUNIT# → N.ED 09:08 → N.EDINP 10:11 → N.CC 11:15
PROVIDERS: ADMIT Hospitalist; ATTEND Hospitalist